=== PATIENT | male | born 1960 | race Two or more races ===

== ENCOUNTER 2024-08-23 09:14 | Emergency (ER) | payer OTHER ==
[~2024-08-23] VITALS: Ht 182.9 cm; Wt 129.3 kg
[2024-08-23] MEDS ORDERED: KETOROLAC TROMETHAMINE INJ 30 MG/ML VIAL ONE (10:00)
[2024-08-23] MEDS: BACLOFEN (10 MG) 10 MG TABLET PO ONE (10:00)
[2024-08-23] MEDS: KETOROLAC TROMETHAMINE INJ 30 MG/ML VIAL IM ONE (10:00)
[2024-08-23] MEDS ORDERED: BACLOFEN (10 MG) 10 MG TABLET ONE (10:01)
[2024-08-23] MEDS ORDERED: BACL5TAB PO (10:45)
[2024-08-23] MEDS ORDERED: KETO10TA2 PO (10:45)
[2024-08-23 11:00] VITALS: BP 132/68; TEMP 98.8; O2SAT 99
== END 2024-08-23 11:01 | disposition home or self-care (01) ==
LOC: EDBD 09:22 → ER 09:22
DX: M25.552 Pain in left hip (principal); M19.90 Unspecified osteoarthritis, unspecified site; I10 Essential (primary) hypertension
CPT/HCPCS: 99283; 96372; 73503; J1885; 73502

== ENCOUNTER 2025-05-17 09:27 | Emergency (ER) | payer OTHER ==
[~2025-05-17] VITALS: Ht 182.9 cm; Wt 136.1 kg
[~2025-05-17 09:27] MED LIST: BACL5TAB PO; KETO10TA2 PO
[2025-05-17 10:30] LABS: PLATELET COUNT (AUTO) 238 K/uL (150-450); RED BLOOD CELL COUNT(AUTO) 5.18 MIL/uL (4.5-6.0); RED CELL DISTRIBUTION WIDTH 13.7 % (11.5-15.0); WHITE BLOOD COUNT (AUTO) 6.9 K/uL (4.3-11.0)
[2025-05-17 10:34] LABS: APPEARANCE,URINE CLEAR (CLEAR); BLOOD, URINE NEGATIVE Ery/uL (NEGATIVE); LEUKOCYTE ESTERASE ,URINE NEGATIVE (NEGATIVE); NITRITE, URINE NEGATIVE (NEGATIVE); UGLUCOSE NEGATIVE (NEGATIVE)
[2025-05-17 10:38] LABS: CALCIUM, SERUM 8.9 mg/dL (8.5-10.1); CREATININE 1.1 mg/dL (0.6-1.3); SODIUM SERUM 136 mmol/L (136-145); UREA NITROGEN, BLOOD 16 mg/dL (7-18)
[2025-05-17 10:43] LABS: ASPARTATE AMINOTRANSFERASE 27 U/L (15-37); TOTAL PROTEIN, SERUM 7.2 g/dL (6.4-8.2)
[2025-05-17 10:47] LABS: ADD URINE CULTURE NO; SQUAMOUS EPITHELIAL CELL,UR 0-2 /HPF (None Seen)
[2025-05-17] MEDS ORDERED: CT SWABBABLE VALVE TRANS SET 1 EA INFUS.SET MC ONE (10:53)
[2025-05-17] MEDS ORDERED: IOHEXOL-300 100 ML VIAL IV ONE (10:53)
[2025-05-17] MEDS ORDERED: IV NS 0.9% 250 ML IV ONE (10:54)
[2025-05-17] MEDS ORDERED: FAMOTIDINE/PF INJ 20 MG/2 ML VIAL IV ONE (12:00)
[2025-05-17] MEDS: FAMOTIDINE/PF INJ 20 MG/2 ML VIAL IV ONE (12:03)
[2025-05-17] MEDS ORDERED: FAMO-131 PO (12:20)
[2025-05-17 12:29] VITALS: BP 160/78; TEMP 98.5; O2SAT 99
== END 2025-05-17 12:30 | disposition home or self-care (01) ==
LOC: ER 09:27
DX: R10.12 Left upper quadrant pain (principal); I10 Essential (primary) hypertension; E66.9 Obesity, unspecified; K76.0 Fatty (change of) liver, not elsewhere classified; Z79.899 Other long term (current) drug therapy; Z68.41 Body mass index [BMI] 40.0-44.9, adult
CPT/HCPCS: 99285; 74177; 96374; 71045; 93005; 73140; 85025; 80048; 83690; 80076; 81001; 36415; 84484; J1308; J7050; Q9967